=== PATIENT | male | born 1970 | race Caucasian/White ===

== ENCOUNTER 2020-09-19 22:51 | Inpatient (IN) | payer OTHER ==
[~2020-09-19] VITALS: Ht 160 cm; Wt 57.3 kg
[2020-09-20 00:36] VITALS: BP 109/73
[2020-09-20 01:32] LABS: BASOPHILS % (AUTO) 1 % (0-1); EOSINOPHILS % (AUTO) 1 % (1-7); LYMPHOCYTES % (AUTO) 14 % (22-44); MEAN CORPUSCULAR HEMOGLOBIN 30.5 pg (27.5-34.5); MEAN CORPUSCULAR HGB CONC 34.1 g/dL (33.2-36.2); MEAN PLATELET VOLUME 7.6 fL (7.4-10.4); MONOCYTES % (AUTO) 9 % (2-9); NEUTROPHILS % (AUTO) 76 % (42-75); PLATELET COUNT 157 x10^3/uL (130-400); RED BLOOD COUNT 4.16 x10^6/uL (4.38-5.82); RED CELL DISTRIBUTION WIDTH 13.3 % (9.4-14.8)
[2020-09-20 01:43] LABS: ANION GAP 7 mmol/L (5-15); CALCIUM 8.7 mg/dL (8.5-10.1); CHLORIDE 105 mmol/L (98-107); CREATININE 0.89 mg/dL (0.7-1.3)
[2020-09-20] MEDS ORDERED: HEPARIN 25,000 UNITS/250ML PMX 250 ML IV PRN (02:00)
[2020-09-20] MEDS ORDERED: HEPARIN 5,000 UNITS/ML, 1ML IV ONE (02:00)
[2020-09-20] MEDS ORDERED: PLEASE ENTER ALLERGIES MC SCH (02:00)
[2020-09-20] MEDS ORDERED: morphine SULFATE 10 MG/ML, 1ML IVPush PRN ×2 (04:00→10:00)
[2020-09-20] MEDS ORDERED: ACETAMINOPHEN 325 MG TABLET PO PRN ×2 (04:00→09:00)
[2020-09-20] MEDS ORDERED: ONDANSETRON 2MG/ML, 2ML IVPush PRN (04:00)
[2020-09-20] MEDS ORDERED: LABETALOL 5MG/ML, 20ML IVPush PRN (04:00)
[2020-09-20] MEDS ORDERED: ASPIRIN 81 MG TABLET CHEW PO SCH (06:00)
[2020-09-20 08:54] VITALS: BP 100/64
[2020-09-20] MEDS ORDERED: NITROGLYCERIN 0.4 MG BOTTLE (25 TABS) SL PRN (09:00)
[2020-09-20] MEDS ORDERED: ASPIRIN 325 MG TABLET PO SCH (09:00)
[2020-09-20] MEDS: HEPARIN 5,000 UNITS/ML, 1ML IV PRN ×2 (09:07→16:23)
[2020-09-20] MEDS ORDERED: ASPIRIN 325 MG TABLET ONE (09:10)
[2020-09-20 13:00] VITALS: BP 100/67
[2020-09-20] MEDS ORDERED: VERAPAMIL 2.5 MG/ML, 2ML ONE (17:36)
[2020-09-20] MEDS ORDERED: FENTANYL PF 100 MCG/2ML ONE (17:36)
[2020-09-20] MEDS ORDERED: TICAGRELOR 90 MG TABLET ONE (17:36)
[2020-09-20] MEDS ORDERED: BIVALIRUDIN 250 MG ONE (17:36)
[2020-09-20] MEDS ORDERED: MIDAZOLAM 1 MG/ML, 5ML ONE (17:36)
[2020-09-20] MEDS ORDERED: HEPARIN 1,000 UNITS/ML, 10ML ONE (17:37)
[2020-09-20] MEDS ORDERED: LIDOCAINE-MPF 1%, 5ML ONE (17:37)
[2020-09-20] MEDS ORDERED: BIVALIRUDIN 250 MG in SODIUM CHLORIDE 0.9% 50 ML IV SCH (19:00)
[2020-09-20 20:23] VITALS: BP 108/73
[2020-09-20] MEDS: ATORVASTATIN 80 MG TABLET PO SCH (21:05)
[2020-09-20] MEDS: TICAGRELOR 90 MG TABLET PO SCH (21:05)
[2020-09-20] MEDS: SODIUM CHLORIDE 0.9% 1,000 ML IV SCH (21:06)
[2020-09-21 01:15] VITALS: BP 112/78
[2020-09-21] MEDS: SODIUM CHLORIDE 0.9% 1,000 ML IV SCH ×2 (03:00→17:29)
[2020-09-21 06:33] LABS: BASOPHILS % (AUTO) 0 % (0-1); EOSINOPHILS % (AUTO) 0 % (1-7); LYMPHOCYTES % (AUTO) 7 % (22-44); MEAN CORPUSCULAR HEMOGLOBIN 30.8 pg (27.5-34.5); MEAN CORPUSCULAR HGB CONC 35.3 g/dL (33.2-36.2); MEAN PLATELET VOLUME 7.9 fL (7.4-10.4); MONOCYTES % (AUTO) 6 % (2-9); NEUTROPHILS % (AUTO) 87 % (42-75); PLATELET COUNT 205 x10^3/uL (130-400); RED BLOOD COUNT 4.26 x10^6/uL (4.38-5.82); RED CELL DISTRIBUTION WIDTH 13.4 % (9.4-14.8)
[2020-09-21] MEDS: ASPIRIN 81 MG TABLET EC PO SCH (06:45)
[2020-09-21 06:50] LABS: CHLORIDE 107 mmol/L (98-107)
[2020-09-21 07:06] LABS: ANION GAP 8 mmol/L (5-15); CALCIUM 8.7 mg/dL (8.5-10.1); CHOL/HDL RATIO 6.4; CHOLESTEROL, TOTAL 219 mg/dL (140-239); CREATININE 0.85 mg/dL (0.7-1.3); HDL CHOL % 16 % (26-37); HDL CHOLESTEROL (DIRECT) 34 mg/dL (40-60); LDL CHOLESTEROL,CALCULATED 150 mg/dL (54-169); LDL/HDL RATIO 4.4 (0.5-3.0); TRIGLYCERIDES 174 mg/dL (50-200); VLDL CHOLESTEROL 35 mg/dL (0-25)
[2020-09-21 08:56] VITALS: BP 108/71
[2020-09-21] MEDS: TICAGRELOR 90 MG TABLET PO SCH ×2 (09:01→21:01)
[2020-09-21 15:27] VITALS: BP 106/69
[2020-09-21] MEDS: ATORVASTATIN 80 MG TABLET PO SCH (21:01)
[2020-09-21 21:06] VITALS: BP 111/73
[2020-09-22 00:24] VITALS: BP 100/63
[2020-09-22 05:36] LABS: BASOPHILS % (AUTO) 0 % (0-1); EOSINOPHILS % (AUTO) 2 % (1-7); LYMPHOCYTES % (AUTO) 13 % (22-44); MEAN CORPUSCULAR HEMOGLOBIN 30.8 pg (27.5-34.5); MEAN CORPUSCULAR HGB CONC 35.2 g/dL (33.2-36.2); MEAN PLATELET VOLUME 7.8 fL (7.4-10.4); MONOCYTES % (AUTO) 7 % (2-9); NEUTROPHILS % (AUTO) 78 % (42-75); PLATELET COUNT 258 x10^3/uL (130-400); RED BLOOD COUNT 4.69 x10^6/uL (4.38-5.82); RED CELL DISTRIBUTION WIDTH 13.2 % (9.4-14.8)
[2020-09-22] MEDS: ASPIRIN 81 MG TABLET EC PO SCH (05:57)
[2020-09-22 06:58] VITALS: BP 110/71
[2020-09-22] MEDS: SODIUM CHLORIDE 0.9% 1,000 ML IV SCH (07:53)
[2020-09-22] MEDS: TICAGRELOR 90 MG TABLET PO SCH (09:00)
[2020-09-22] MEDS ORDERED: NITR0.4T28 SL (11:16)
[2020-09-22] MEDS ORDERED: ASPI81TA45 PO (11:16)
[2020-09-22] MEDS ORDERED: TICA90TA PO (11:16)
[2020-09-22] MEDS ORDERED: ATOR-2 PO (11:16)
== END 2020-09-22 13:34 | disposition home or self-care (01) | DRG 246 ==
LOC: 5SO 09-20 00:21
PROVIDERS: ADMIT Family Medicine; ATTEND Internal Medicine
PROC: 027034Z Dilation of Coronary Artery, One Artery with Drug-eluting Intraluminal Device, Percutaneous Approach (ICD-10-PCS; principal; 2020-09-20)
PROC: 02C03ZZ Extirpation of Matter from Coronary Artery, One Artery, Percutaneous Approach (ICD-10-PCS; 2020-09-20)
PROC: 4A023N7 Measurement of Cardiac Sampling and Pressure, Left Heart, Percutaneous Approach (ICD-10-PCS; 2020-09-20)
PROC: B2111ZZ Fluoroscopy of Multiple Coronary Arteries using Low Osmolar Contrast (ICD-10-PCS; 2020-09-20)
PROC: B2151ZZ Fluoroscopy of Left Heart using Low Osmolar Contrast (ICD-10-PCS; 2020-09-20)
DX: I21.4 Non-ST elevation (NSTEMI) myocardial infarction (principal); U07.1 COVID-19; J12.82 Pneumonia due to coronavirus disease 2019; F17.210 Nicotine dependence, cigarettes, uncomplicated; D64.9 Anemia, unspecified; E78.5 Hyperlipidemia, unspecified; Z71.6 Tobacco abuse counseling; Z79.899 Other long term (current) drug therapy
CPT/HCPCS: 36415; 93458; C9600; 71045; 80048; 80061; 84484; 85025; 85520; 93005; 93306; 99156; 99157; C1769; C1894; G0378; J0583; J1644; J2250; J3010; U0005; C1725; C1757; C1874; C1887; J7030; Q9967; U0003